=== PATIENT | female | born 1950 | race Caucasian/White ===

== ENCOUNTER 2017-08-21 11:05 | Inpatient (IN) | payer MEDICARE, OTHER ==
[~2017-08-21 11:05] MED LIST: Bisacodyl 5 MG Tab PO PRN; Cyclobenzaprine 10 MG Tab PO PRN; Ketorolac 15 MG/ML SDV IVPUSH PRN; Lidocaine 1%/Sod Bicarbonate in NS 8.4% 1 ML Syringe IV PRN; Magnesium Hydroxide 400 MG/5 ML Susp 30 ML Cup PO PRN; Morphine 2 MG/ML Syringe IVPUSH PRN; Naloxone 0.4 MG/ML SDV IVPUSH PRN; Ondansetron 4 MG/2 ML SDV IVPUSH PRN; Sennosides 8.6 MG Tab PO PRN; Sodium Chloride 0.9% 10 ML Syringe FLUSH PRN; diphenhydrAMINE 50 MG/ML SDV IVPUSH PRN
[2017-08-21] MEDS: Lactated Ringers 1,000 ML IV SCH ×2 (12:55→15:36)
[2017-08-21] MEDS ORDERED: Propofol 200 MG/20 ML SDV ONE ×2 (13:25→14:52)
[2017-08-21] MEDS ORDERED: ceFAZolin 1 GM Vial ONE ×2 (13:25→15:11)
[2017-08-21] MEDS ORDERED: Midazolam 1 MG/ML 2 ML SDV ONE ×2 (13:26→17:46)
[2017-08-21] MEDS ORDERED: fentaNYL 100 MCG/2 ML SDV ONE (13:26)
--- NOTE | 2017-08-21 13:57 | PCM.PREANE ---
Preanesthetic Assessment - Anesthesia/Transfusion/Family Hx Anesthesia History: Prior Anesthesia Without Reaction Family History of Anesthesia Reaction: No Transfusion History: No Prior Transfusion(s) Intubation History: Unknown - Review of Systems General: No Symptoms Pulmonary: No Symptoms Cardiovascular: No Symptoms, Other (Hypertension) Gastrointestinal: No Symptoms Neurological: No Symptoms Other: Reports: None - Physical Assessment NPO Status Date: 08/20/17 NPO Status Time: 21:00 O2 Sat by Pulse Oximetry: 96 Respiratory Rate: 18 Vital Signs: Last Vital Signs Temp 36.8 C 08/21/17 12:31 Pulse 75 08/21/17 12:31 Resp 18 08/21/17 12:31 BP 162/91 H 08/21/17 12:31 Pulse Ox 96 08/21/17 12:31 Height: 1.73 m Weight: 113.852 kg ASA Class: 2 Mental Status: Alert & Oriented x3 Airway Class: Mallampati = 2 Dentition: Reports: Normal Dentition Thyro-Mental Finger Breadths: 2 Mouth Opening Finger Breadths: 2 ROM/Head Extension: Full Lungs: Clear to Auscultation, Normal Respiratory Effort Cardiovascular: Regular Rate, Regular Rhythm - Lab Values: Laboratory Last Values APTT 25 SECONDS (22-36) 08/21/17 12:55 MRSA (PCR) Negative 08/09/17 10:21 - Imaging/EKG Impressions: Reviewed - Allergies Allergies/Adverse Reactions: Allergies Allergy/AdvReac Type Severity Reaction Status Date / Time No Known Allergies Allergy Verified 04/29/16 21:21 - Acknowledgements Anesthesia Type Planned: Spinal Pt an Appropriate Candidate for the Planned Anesthesia: Yes Alternatives and Risks of Anesthesia Discussed w Pt/Guardian: Yes Pt/Guardian Understands and Agrees with Anesthesia Plan: Yes PreAnesthesia Questionnaire HEENT History: Reports: Macular Degeneration Cardiovascular History: Reports: High Cholesterol, Hypertension Other Genitourinary History: enuresis [employer]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: Oncologic (Cancer) History: Reports: Breast - Past Surgical History HEENT Surgical History: Reports: Laser Surgery - SUBSTANCE USE Smoking Status *Q: Never Smoker Recreational Drug Use History: No - HOME MEDS Home Medications: Home Meds Acetaminophen/HYDROcodone [[place] 325-5 MG] 1 - 2 tab PO Q4H PRN #20 tablet 04/29 [Rx] Doxycycline [Vibramycin] 100 mg PO BID #28 tablet 04/29/16 [Rx] Hydrocodone/Acetaminophen [Hydrocodon-Acetaminophen 5-325] 1 each PO Q4H PRN 09/02 [History] Ramipril 10 mg PO DAILY 04/29/16 [History] - CURRENT (IN HOUSE) MEDS Current Meds: Current Medications Aspirin (Ecotrin) 325 mg PO BID [facility] Bisacodyl (Dulcolax) 5 mg PO DAILY PRN PRN Reason: Constipation Cyclobenzaprine HCl (Flexeril) 10 mg PO TID PRN PRN Reason: Spasms Diphenhydramine HCl (Benadryl) 25 mg IVPUSH Q4H PRN PRN Reason: Nausea Docusate Sodium (Colace) 100 mg PO BID [facility] Famotidine (Pepcid) 20 mg PO Q12H [facility] Lactated Ringer's (Ringers, Lactated) 1,000 mls @ 125 mls/hr IV ASDIRECTED [facility] Stop: 08/21/17 18:00 Last Admin: 08/21/17 12:55 Dose: 125 mls/hr Cefazolin Sodium/Dextrose 2 gm (/ Premix) 50 mls @ 100 mls/hr IV Q8H [facility] Stop: 08/22/17 13:59 Ketorolac Tromethamine (Toradol) 15 mg IVPUSH Q6H PRN PRN Reason: Pain Lidocaine/Sodium Bicarbonate (Buffered Lidocaine 1% In Ns 8.4%) 0.25 ml IV ONETIME PRN PRN Reason: Prior to IV Start Stop: 08/21/17 18:00 Last Admin: 08/21/17 12:55 Dose: 0.25 ml Magnesium Hydroxide (Milk Of Magnesia) 30 ml PO BID PRN PRN Reason: Constipation Morphine Sulfate (Morphine) 2 mg IVPUSH Q2H PRN PRN Reason: Breakthrough Pain Naloxone HCl (Narcan) 0.1 mg IVPUSH Q5M PRN PRN Reason: Oversedation Ondansetron HCl (Zofran) 4 mg IVPUSH Q6H PRN PRN Reason: Nausea/Vomiting Oxycodone/Acetaminophen (Percocet 325-5 Mg) 1 - 2 tab PO Q4H PRN PRN Reason: Pain Rivaroxaban (Xarelto) 10 mg PO DAILY [facility] Senna (Senna) 8.6 mg PO BID PRN PRN Reason: Constipation Sodium Chloride (Saline Flush) 10 ml FLUSH ASDIRECTED PRN PRN Reason: Keep Vein Open Discontinued Medications Cefazolin Sodium (Ancef) Confirm Administered Dose 2 gm .ROUTE .STK-MED ONE Stop: 08/21/17 13:26 Morphine Sulfate 8 mg/Epinephrine HCl 0.3 mg/Cefuroxime Sodium 750 mg/Ketorolac Tromethamine 30 mg/Sodium Chloride 27.9 ml 0 mg .XX ONETIME ONE Stop: 08/21/17 07:06 Fentanyl (Sublimaze) Confirm Administered Dose 100 mcg .ROUTE .STK-MED ONE Stop: 08/21/17 13:27 Midazolam HCl (Versed 1 Mg/Ml) Confirm Administered Dose 2 mg .ROUTE .STK-MED ONE Stop: 08/21/17 13:27 Propofol (Diprivan 20 Ml) Confirm Administered Dose 200 mg .ROUTE .STK-MED ONE Stop: 08/21/17 13:26
[2017-08-21] MEDS ORDERED: Lidocaine 1% 0 ML ONE (14:51)
[2017-08-21] MEDS ORDERED: Ondansetron 4 MG/2 ML SDV ONE (14:52)
[2017-08-21] MEDS ORDERED: Phenylephrine 1% 10 MG/ML SDV ONE (14:52)
[2017-08-21] MEDS ORDERED: Morphine PF 10 MG/10 ML SDV ONE (15:09)
[2017-08-21] MEDS ORDERED: Lactated Ringers 1,000 ML ONE ×2 (16:20)
[2017-08-21] MEDS ORDERED: HYDROmorphone 0.5 MG/0.5 ML Syringe IVPUSH PRN (16:28)
[2017-08-21] MEDS ORDERED: fentaNYL 100 MCG/2 ML SDV IVPUSH PRN (16:28)
[2017-08-21] MEDS ORDERED: ePHEDrine 50 MG/ML SDV IVPUSH PRN (16:28)
[2017-08-21] MEDS ORDERED: Ondansetron 4 MG/2 ML SDV IVPUSH PRN (16:28)
[2017-08-21] MEDS ORDERED: diphenhydrAMINE 50 MG/ML SDV IVPUSH PRN (16:28)
[2017-08-21] MEDS ORDERED: Phenylephrine 1 MG in Sodium Chloride 0.9% 10 ML IV SCH (16:30)
[2017-08-21] MEDS: ceFAZolin 1 GM Vial ONE ×2 (16:56→17:18)
[2017-08-21] MEDS: Iodine/Sodium Iodide 2% Tincture 30 ML Bottle ONE ×2 (16:56→17:14)
[2017-08-21] MEDS: Morphine 8 MG, EPINEPHrine 0.3 MG, Cefuroxime 750 MG, Ketorolac 30 MG, Sodium Chloride ... ONE ×10 (16:57→17:25)
[2017-08-21] MEDS: Bupivacaine 0.25% 30 ML SDV ONE ×2 (16:57→17:26)
[2017-08-21] MEDS: Vancomycin 1 GM SDV ONE ×2 (16:58→17:27)
--- NOTE | 2017-08-21 18:12 | PCM.POSTAN ---
POST ANESTHESIA ASSESSMENT - MENTAL STATUS Mental Status: Alert - VITAL SIGNS Pulse Rate: 93 SaO2: 94 Resp Rate: 15 Blood Pressure: 118/69 Temperature: 36.9 C - RESPIRATORY Respiratory Status: Respiratory Rate WNL, Airway Patent, O2 Saturation Stable - CARDIOVASCULAR CV Status: Pulse Rate WNL, Blood Pressure Stable - GASTROINTESTINAL GI Status: No Symptoms - POST OP HYDRATION Hydration Status: Adequate & Stable
--- NOTE | 2017-08-21 19:08 | CR ---
Right knee: AP and lateral views of the right knee were obtained. Comparison: No prior knee study. Knee prosthesis is seen. Soft tissue air is noted. Underlying bony structures are intact. Prosthesis appears aligned. Impression: 1. Satisfactory radiographic appearance of recently placed right knee prosthesis. Diagnostic code #2
[2017-08-21] MEDS: Aspirin 325 MG Tab.EC PO SCH ×2 (19:39→21:18)
[2017-08-21] MEDS: Docusate Sodium 100 MG Cap PO SCH (21:18)
[2017-08-21] MEDS: Famotidine 20 MG Tab PO SCH (21:18)
[2017-08-21] MEDS: ceFAZolin 2 GM in Premix Bag 1 BAG IV SCH (21:20)
--- NOTE | 2017-08-21 21:30 | PCM.CONS ---
H&P History of Present Illness - General Date of Service: 08/21/17 Admit Problem/Dx: Admission Diagnosis/Problem Admission Diagnosis/Problem Osteoarthritis of knee Source of Information: Patient, Old Records, Provider, RN, RN Notes Reviewed, Other (Surgical notes ) History Limitations: Reports: No Limitations - History of Present Illness Initial Comments - Free Text/Narative: Awilda Fontenot is a 67 yo female patient of Dr. Regan who is post-operative day 0 of right TKA. Hospital medicine was consulted for post-operative medical care. At this time she is resting comfortably in bed. Pain is controlled. She denies any chest pain, shortness of breath, palpitations, nausea, or vomiting. She carries a history of: Macular degeneration, HLD, HTN, enuresis, and breast cancer. She is a full code. - Related Data Allergies/Adverse Reactions: Allergies Allergy/AdvReac Type Severity Reaction Status Date / Time No Known Allergies Allergy Verified 08/21/17 13:59 Home Medications: Home Meds Hydrocodone/Acetaminophen [Hydrocodon-Acetaminophen 5-325] 1 each PO Q4H PRN 09/02 [History] Ramipril 10 mg PO DAILY 04/29/16 [History] Anastrozole [Arimidex] 1 mg PO DAILY 08/21/17 [History] B2/Vit A,C & E/Lut/Zeaxanth/Mn [Icaps] 1 tab PO DAILY 08/21/17 [History] Calcium Carbonate [Calcium] 500 mg PO DAILY 08/21/17 [History] Cholecalciferol (Vitamin D3) [Vitamin D] 5,000 unit PO DAILY 08/21/17 [History] Hydrochlorothiazide 25 mg PO DAILY 08/21/17 [History] Past Medical History HEENT History: Reports: Macular Degeneration Cardiovascular History: Reports: High Cholesterol, Hypertension Genitourinary History: Reports: Other (See Below) Other Genitourinary History: enuresis [employer]HER OPERATOR History: Reports: Musculoskeletal History: Reports: Arthritis Endocrine/Metabolic History: Reports: Obesity/BMI 30+ Oncologic (Cancer) History: Reports: Breast Other Oncologic History: Patient states bilateral breast cancer. States she had a mastectomy bilaterally on 2015. - Past Surgical History HEENT Surgical History: Reports: Laser Surgery Social & Family History - Tobacco Use Smoking Status *Q: Never Smoker - Recreational Drug Use Recreational Drug Use: No H&P Review of Systems - Review of Systems: Review Of Systems: See Below General: Reports: No Symptoms HEENT: Reports: No Symptoms Pulmonary: Reports: No Symptoms Cardiovascular: Reports: No Symptoms Gastrointestinal: Reports: No Symptoms Genitourinary: Reports: No Symptoms Musculoskeletal: Reports: Joint Pain (right knee ). Denies: Neck Pain, Shoulder Pain, Arm Pain, Back Pain, Hand Pain, Leg Pain, Foot Pain, Joint Swelling Skin: Reports: No Symptoms Psychiatric: Reports: No Symptoms Neurological: Reports: No Symptoms Hematologic/Lymphatic: Reports: No Symptoms Immunologic: Reports: No Symptoms Exam - Exam Exam: See Below - Vital Signs Vital Signs: Last Vital Signs Temp 97.3 F 08/21/17 19:00 Pulse 71 08/21/17 19:14 Resp 14 08/21/17 19:00 BP 120/71 08/21/17 19:00 Pulse Ox 98 08/21/17 20:42 Weight: 251 lb - Exam Quality Assessment: Supplemental Oxygen, Urinary Catheter, DVT Prophylaxis General: Alert, Oriented, Cooperative. No: Mild Distress HEENT: Conjunctiva Clear, EACs Clear, EOMI, Hearing Intact, Mucosa Moist & [place] , Nares Patent, Normal Nasal Septum, Posterior Pharynx Clear, PERRLA Neck: Supple, Trachea Midline. No: JVD, Thyromegaly Lungs: Clear to Auscultation, Normal Respiratory Effort Cardiovascular: Regular Rate, Regular Rhythm GI/Abdominal Exam: Normal Bowel Sounds, Soft, Non-Tender, No Organomegaly, No Distention, No Abnormal Bruit, No Mass, Pelvis Stable (Female) Exam: Deferred Rectal (Female) Exam: Deferred Back Exam: Normal Inspection, Full Range of Motion Extremities: No Pedal Edema, Normal Capillary Refill, Other (SONNY bandage in place on right leg. Bandage is dry and intact. Cooling pack in place. ) Peripheral Pulses: 2+: Radial (L), Radial (R), Posterior Tibial (L), Posterior Tibial (R), Dorsalis Pedis (L), Dorsalis Pedis (R) Skin: Warm, Dry, Intact Neurological: Cranial Nerves Intact (grossly) Neuro Extensive - Mental Status: Alert, Oriented x3, Normal Mood/Affect, Normal Cognition Neuro Extensive - Motor, Sensory, Reflexes: CN II-XII Intact (grossly) Psychiatric: Alert, Normal Affect, Normal Mood - Patient Data Lab Results Last 24 hrs: Laboratory Results - last 24 hr 08/21/17 Range/Units 12:55 APTT 25 (22-36) SECONDS Consult PN Assessment/Plan POD#: 0 Procedures: Procedures COMPLETE CBC W/AUTO DIFF WBC (04/29/16) CULTR BACTERIA EXCEPT BLOOD (04/29/16) EMERGENCY DEPT VISIT (04/29/16) PROTHROMBIN TIME (08/14/17) ROUTINE VENIPUNCTURE (08/14/17) SMEAR GRAM STAIN (04/29/16) (1) S/P total knee arthroplasty SNOMED Code(s): 5101886013470, 4751478590644 Code(s): Z96.659 - PRESENCE OF UNSPECIFIED ARTIFICIAL KNEE JOINT Priority: High Current Visit: Yes Qualifiers: Laterality: right Qualified Code(s): Z96.651 - Presence of right artificial knee joint (2) Osteoarthritis SNOMED Code(s): 330710059 Code(s): M19.90 - UNSPECIFIED OSTEOARTHRITIS, UNSPECIFIED SITE Priority: High Current Visit: Yes Qualifiers: Osteoarthritis location: knee Osteoarthritis type: primary Laterality: right Qualified Code(s): M17.11 - Unilateral primary osteoarthritis, right knee (3) Macular degeneration SNOMED Code(s): 297121601 Code(s): H35.30 - UNSPECIFIED MACULAR DEGENERATION Priority: Low Current Visit: No (4) HLD (hyperlipidemia) SNOMED Code(s): 72951866 Code(s): E78.5 - HYPERLIPIDEMIA, UNSPECIFIED Priority: Low Current Visit : No Qualifiers: Hyperlipidemia type: unspecified Qualified Code(s): E78.5 - Hyperlipidemia , unspecified (5) HTN (hypertension) SNOMED Code(s): 55341915 Code(s): I10 - ESSENTIAL (PRIMARY) HYPERTENSION Priority: Low Current Visit: No Qualifiers: Hypertension type: unspecified Qualified Code(s): I10 - Essential (primary ) hypertension (6) Enuresis SNOMED Code(s): 164169524 Code(s): R32 - UNSPECIFIED URINARY INCONTINENCE Priority: Low Current Visit: No (7) H/O malignant neoplasm of breast SNOMED Code(s): 226715630 Code(s): Z85.3 - PERSONAL HISTORY OF MALIGNANT NEOPLASM OF BREAST Priority : Low Current Visit: No Problem List Initiated/Reviewed/Updated: Yes Plan: I/P: Acute: S/P right total knee arthroplasty - post-operative day 0 -DVT prophylaxis and pain management per primary care team -PT/OT -IS/RT -Monitor oxygen saturation -Titrate oxygen as needed -Vital signs stable Osteoarthritis of right knee -Pain management per primary care team Chronic: Macular degeneration HLD HTN - stable enuresis hx/o breast cancer Plan: SW/CM for discharge planning GI prophylaxis Home medications as indicated Other orders as listed above Routine AM labs She is a full code. Thank you for allowing us to participate in the care of this patient!! Requesting Provider: Dr. Regan Date Consult Requested: 08/21/17 Reason for Consult: Post-operative medical care Patient History Reviewed: Yes Admission H&P Reviewed: Yes
[2017-08-22] MEDS: ceFAZolin 2 GM in Premix Bag 1 BAG IV SCH ×2 (06:37→13:55)
[2017-08-22] MEDS ORDERED: Hydrochlorothiazide 25 MG Tab PO SCH (09:00)
[2017-08-22] MEDS ORDERED: Lisinopril 20 MG Tab PO SCH (09:00)
[2017-08-22] MEDS ORDERED: Rivaroxaban 10 MG Tab PO SCH (09:00)
[2017-08-22] MEDS ORDERED: Cholecalciferol (Vitamin D3) 1,000 Unit Tab PO SCH (09:00)
[2017-08-22] MEDS ORDERED: Anastrozole 1 MG Tab PO SCH (09:00)
[2017-08-22] MEDS ORDERED: Calcium Carbonate 600 MG Tab PO SCH (09:00)
[2017-08-22] MEDS: Morphine 8 MG, EPINEPHrine 0.3 MG, Cefuroxime 750 MG, Ketorolac 30 MG, Sodium Chloride ... ONE ×5 (09:31)
[2017-08-22] MEDS: Aspirin 325 MG Tab.EC PO SCH (10:52)
[2017-08-22] MEDS: Famotidine 20 MG Tab PO SCH (10:53)
[2017-08-22] MEDS: Docusate Sodium 100 MG Cap PO SCH (10:53)
[2017-08-22 10:55] VITALS: BP 102/59
--- NOTE | 2017-08-22 11:10 | PCM.CONSN ---
- General Info Date of Service: 08/22/17 Functional Status: Reports: Pain Controlled - Review of Systems General: Reports: No Symptoms HEENT: Reports: No Symptoms Pulmonary: Reports: No Symptoms Cardiovascular: Reports: No Symptoms Gastrointestinal: Reports: No Symptoms Genitourinary: Reports: No Symptoms Musculoskeletal: Reports: No Symptoms Skin: Reports: No Symptoms Neurological: Reports: No Symptoms Psychiatric: Reports: No Symptoms - Patient Data Vitals - Most Recent: Last Vital Signs Temp 98.1 F 08/22/17 04:03 Pulse 65 08/22/17 04:03 Resp 16 08/22/17 07:07 BP 102/59 L 08/22/17 10:53 Pulse Ox 99 08/22/17 07:07 Weight - Most Recent: 251 lb I&O - Last 24 Hours: Intake & Output 08/21/17 08/22/17 08/22/17 22:59 06:59 14:59 Intake Total 300 120 Output Total 425 225 Balance -125 -225 120 Lab Results Last 24 Hours: Laboratory Results - last 24 hr 08/21/17 08/22/17 08/22/17 Range/Units 12:55 06:55 06:55 WBC 8.54 (3.98-10.04) K/mm3 RBC 3.97 L (3.98-5.22) M/mm3 Hgb 11.7 (11.2-15.7) gm/L Hct 35.6 (34.1-44.9) % MCV 89.7 (79.4-94.8) fl MCH 29.5 (25.6-32.2) pg MCHC 32.9 (32.2-35.5) g/dl RDW Std Deviation 45.3 (36.4-46.3) fL Plt Count 205 (182-369) K/mm3 MPV 9.7 (9.4-12.3) fl APTT 25 (22-36) SECONDS Sodium 140 (136-145) mEq/L Potassium 4.0 (3.5-5.1) mEq/L Chloride 106 (98-107) mEq/L Carbon Dioxide 26 (21-32) mEq/L Anion Gap 12.0 (5-15) BUN 14 (7-18) mg/dL Creatinine 0.8 (0.55-1.02) mg/dL Est Cr Clr Drug Dosing 68.84 mL/min Estimated GFR (MDRD) > 60 (>60) mL/min BUN/Creatinine Ratio 17.5 (14-18) Glucose 115 (80-115) mg/dL Calcium 8.5 (8.5-10.1) mg/dL Total Bilirubin 0.6 (0.2-1.0) mg/dL AST 18 (15-37) U/L ALT 24 (14-59) U/L Alkaline Phosphatase 48 (46-116) U/L Total Protein 5.8 L (6.4-8.2) g/dl Albumin 3.1 L (3.4-5.0) g/dl Globulin 2.7 gm/dL Albumin/Globulin Ratio 1.2 (1-2) Med Orders - Current: Current Medications Anastrozole (Arimidex) 1 mg PO DAILY [facility] Last Admin: 08/22/17 10:54 Dose: 1 mg Aspirin (Ecotrin) 325 mg PO BID [facility] Last Admin: 08/22/17 10:52 Dose: 325 mg Bisacodyl (Dulcolax) 5 mg PO DAILY PRN PRN Reason: Constipation Calcium Carbonate/Glycine (Calcium Carbonate) 600 mg PO DAILY [facility] Last Admin: 08/22/17 10:53 Dose: 600 mg Cholecalciferol (Vitamin D3) 5,000 units PO DAILY [facility] Last Admin: 08/22/17 10:53 Dose: 5,000 units Cyclobenzaprine HCl (Flexeril) 10 mg PO TID PRN PRN Reason: Spasms Diphenhydramine HCl (Benadryl) 25 mg IVPUSH Q6H PRN PRN Reason: pruritis Docusate Sodium (Colace) 100 mg PO BID [facility] Last Admin: 08/22/17 10:53 Dose: 100 mg Famotidine (Pepcid) 20 mg PO Q12H [facility] Last Admin: 08/22/17 10:53 Dose: 20 mg Hydrochlorothiazide (Hydrochlorothiazide) 25 mg PO DAILY [facility] Last Admin: 08/22/17 10:53 Dose: 25 mg Cefazolin Sodium/Dextrose 2 gm (/ Premix) 50 mls @ 100 mls/hr IV Q8H [facility] Stop: 08/22/17 13:59 Last Admin: 08/22/17 06:37 Dose: 100 mls/hr Ketorolac Tromethamine (Toradol) 15 mg IVPUSH Q6H PRN PRN Reason: Pain Lisinopril (Prinivil) 20 mg PO DAILY [facility] Last Admin: 08/22/17 10:53 Dose: 20 mg Magnesium Hydroxide (Milk Of Magnesia) 30 ml PO BID PRN PRN Reason: Constipation Morphine Sulfate (Morphine) 2 mg IVPUSH Q2H PRN PRN Reason: Breakthrough Pain Naloxone HCl (Narcan) 0.1 mg IVPUSH Q5M PRN PRN Reason: Oversedation Ondansetron HCl (Zofran) 4 mg IVPUSH Q6H PRN PRN Reason: Nausea/Vomiting Ondansetron HCl (Zofran) 4 mg IVPUSH ONETIME PRN PRN Reason: Nausea/Vomiting Oxycodone/Acetaminophen (Percocet 325-5 Mg) 1 - 2 tab PO Q4H PRN PRN Reason: Pain Rivaroxaban (Xarelto) 10 mg PO DAILY [facility] Last Admin: 08/22/17 10:53 Dose: 10 mg Senna (Senna) 8.6 mg PO BID PRN PRN Reason: Constipation Sodium Chloride (Saline Flush) 10 ml FLUSH ASDIRECTED PRN PRN Reason: Keep Vein Open Discontinued Medications Bupivacaine HCl (Marcaine 0.25%) Confirm Administered Dose 30 ml .ROUTE .STK- MED ONE Stop: 08/21/17 14:26 Last Admin: 08/21/17 17:26 Dose: 30 ml Cefazolin Sodium (Ancef) Confirm Administered Dose 2 gm .ROUTE .STK-MED ONE Stop: 08/21/17 13:26 Cefazolin Sodium (Ancef) Confirm Administered Dose 2 gm .ROUTE .STK-MED ONE Stop: 08/21/17 14:26 Last Admin: 08/21/17 17:18 Dose: 2 gm Cefazolin Sodium (Ancef) Confirm Administered Dose 2 gm .ROUTE .STK-MED ONE Stop: 08/21/17 15:12 Morphine Sulfate 8 mg/Epinephrine HCl 0.3 mg/Cefuroxime Sodium 750 mg/Ketorolac Tromethamine 30 mg/Sodium Chloride 27.9 ml 0 mg .XX ONETIME ONE Stop: 08/21/17 07:06 Last Admin: 08/22/17 09:31 Dose: Not Given Diphenhydramine HCl (Benadryl) 25 mg IVPUSH Q4H PRN PRN Reason: Nausea Ephedrine Sulfate (Ephedrine Sulfate) 5 mg IVPUSH ASDIRECTED PRN PRN Reason: Hypotension Fentanyl (Sublimaze) Confirm Administered Dose 100 mcg .ROUTE .STK-MED ONE Stop: 08/21/17 13:27 Fentanyl (Sublimaze) 50 mcg IVPUSH Q5M PRN PRN Reason: Pain Glycopyrrolate () Confirm Administered Dose 1 mg .ROUTE .STK-MED ONE Stop: 08/21/17 17:28 Hydromorphone HCl (Dilaudid) 0.5 mg IVPUSH Q15M PRN PRN Reason: severe pain Lactated Ringer's (Ringers, Lactated) 1,000 mls @ 125 mls/hr IV ASDIRECTED [facility] Stop: 08/21/17 18:00 Last Admin: 08/21/17 15:36 Dose: 125 mls/hr Lidocaine HCl (Xylocaine-Mpf 1%) Confirm Administered Dose 0 mls @ as directed .ROUTE .STK-MED ONE Stop: 08/21/17 14:52 Lidocaine HCl (Xylocaine-Mpf 1%) Confirm Administered Dose 10 mls @ as directed .ROUTE .STK-MED ONE Stop: 08/21/17 14:53 Lactated Ringer's (Ringers, Lactated) Confirm Administered Dose 1,000 mls @ as directed .ROUTE .STK-MED ONE Stop: 08/21/17 16:21 Lactated Ringer's (Ringers, Lactated) Confirm Administered Dose 1,000 mls @ as directed .ROUTE .STK-MED ONE Stop: 08/21/17 16:21 Phenylephrine HCl 1 mg/ Sodium (Chloride) 10.1 mls @ 1 mls/sec IV TITRATE [facility] PRN Reason: Protocol Iodine (Iodine 2% Mild Tincture) Confirm Administered Dose 30 ml .ROUTE .STK- MED ONE Stop: 08/21/17 14:26 Last Admin: 08/21/17 17:14 Dose: 18 ml Lidocaine/Sodium Bicarbonate (Buffered Lidocaine 1% In Ns 8.4%) 0.25 ml IV ONETIME PRN PRN Reason: Prior to IV Start Stop: 08/21/17 18:00 Last Admin: 08/21/17 12:55 Dose: 0.25 ml Midazolam HCl (Versed 1 Mg/Ml) Confirm Administered Dose 2 mg .ROUTE .STK-MED ONE Stop: 08/21/17 13:27 Midazolam HCl (Versed 1 Mg/Ml) Confirm Administered Dose 2 mg .ROUTE .STK-MED ONE Stop: 08/21/17 17:47 Morphine Sulfate (Duramorph Pf) Confirm Administered Dose 10 mg .ROUTE .STK-MED ONE Stop: 08/21/17 15:10 Ondansetron HCl (Zofran) Confirm Administered Dose 4 mg .ROUTE .STK-MED ONE Stop: 08/21/17 14:53 Phenylephrine HCl (Robert-Synephrine) Confirm Administered Dose 10 mg .ROUTE .STK- MED ONE Stop: 08/21/17 14:53 Propofol (Diprivan 20 Ml) Confirm Administered Dose 200 mg .ROUTE .STK-MED ONE Stop: 08/21/17 13:26 Propofol (Diprivan 20 Ml) Confirm Administered Dose 400 mg .ROUTE .STK-MED ONE Stop: 08/21/17 14:53 Tranexamic Acid (Cyklokapron) Confirm Administered Dose 1,000 mg .ROUTE .STK- MED ONE Stop: 08/21/17 14:26 Last Admin: 08/21/17 17:32 Dose: 1,000 mg Vancomycin HCl (Vancomycin) Confirm Administered Dose 1 gm .ROUTE .STK-MED ONE Stop: 08/21/17 14:26 Last Admin: 08/21/17 17:27 Dose: 1 gm - Exam General: Alert, Oriented HEENT: Pupils Equal, Pupils Reactive, EOMI, Mucous Membr. Moist/[place] Neck: Supple Lungs: Clear to Auscultation, Normal Respiratory Effort Cardiovascular: Regular Rate, Regular Rhythm GI/Abdominal Exam: Normal Bowel Sounds, Soft, Non-Tender, No Organomegaly, No Distention, No Abnormal Bruit, No Mass, Pelvis Stable Extremities: Normal Inspection, Normal Range of Motion, Non-Tender, No Pedal Edema, Normal Capillary Refill Skin: Warm, Dry, Intact Wound/Incisions: Healing Well Neurological: No New Focal Deficit Psy/Mental Status: Alert, Normal Affect, Normal Mood Consult PN Assessment/Plan POD#: 1 Procedures: Procedures COMPLETE CBC W/AUTO DIFF WBC (04/29/16) CULTR BACTERIA EXCEPT BLOOD (04/29/16) EMERGENCY DEPT VISIT (04/29/16) PROTHROMBIN TIME (11/27/17) ROUTINE VENIPUNCTURE (08/14/17) SMEAR GRAM STAIN (04/29/16) Problem List Initiated/Reviewed/Updated: Yes Plan: S/P right total knee arthroplasty - post-operative day 1 -DVT prophylaxis and pain management per primary care team -PT/OT -IS/RT -Monitor oxygen saturation -Titrate oxygen as needed -Vital signs stable Osteoarthritis of right knee -Pain management per primary care team Chronic: Macular degeneration HLD HTN - stable enuresis hx/o breast cancer Plan: pt is stable okay to DC from our standpoint on her home med for BP will sign off She is a full code. Thank you for allowing us to participate in the care of this patient!!
[2017-08-22] MEDS: Acetaminophen/oxyCODONE 325-5 MG Tab PO PRN ×2 (12:39→16:21)
--- NOTE | 2017-08-23 11:03 | PCM.SURGPN ---
- General Info Date of Service: 08/22/17 POD#: 1 Functional Status: Reports: Pain Controlled, Tolerating Diet, Ambulating, Urinating, Incentive Spirometry, Other (Nursing states pt's pain has been controlled. The pt feels prepared for discharge to assisted living.) - Patient Data Vitals - Most Recent: Last Vital Signs Temp 98.3 F 08/22/17 11:09 Pulse 76 08/22/17 10:55 Resp 16 08/22/17 07:07 BP 102/59 L 08/22/17 10:55 Pulse Ox 90 L 08/22/17 10:55 Weight - Most Recent: 251 lb I&O - Last 24 Hours: Intake & Output 08/22/17 08/23/17 08/23/17 22:59 06:59 14:59 Intake Total 50 Output Total 425 Balance -375 Med Orders - Current: Current Medications Discontinued Medications Anastrozole (Arimidex) 1 mg PO DAILY [facility] Last Admin: 08/22/17 10:54 Dose: 1 mg Aspirin (Ecotrin) 325 mg PO BID [facility] Last Admin: 08/22/17 10:52 Dose: 325 mg Bisacodyl (Dulcolax) 5 mg PO DAILY PRN PRN Reason: Constipation Bupivacaine HCl (Marcaine 0.25%) Confirm Administered Dose 30 ml .ROUTE .STK- MED ONE Stop: 08/21/17 14:26 Last Admin: 08/21/17 17:26 Dose: 30 ml Calcium Carbonate/Glycine (Calcium Carbonate) 600 mg PO DAILY [facility] Last Admin: 08/22/17 10:53 Dose: 600 mg Cefazolin Sodium (Ancef) Confirm Administered Dose 2 gm .ROUTE .STK-MED ONE Stop: 08/21/17 13:26 Cefazolin Sodium (Ancef) Confirm Administered Dose 2 gm .ROUTE .STK-MED ONE Stop: 08/21/17 14:26 Last Admin: 08/21/17 17:18 Dose: 2 gm Cefazolin Sodium (Ancef) Confirm Administered Dose 2 gm .ROUTE .STK-MED ONE Stop: 08/21/17 15:12 Cholecalciferol (Vitamin D3) 5,000 units PO DAILY [facility] Last Admin: 08/22/17 10:53 Dose: 5,000 units Morphine Sulfate 8 mg/Epinephrine HCl 0.3 mg/Cefuroxime Sodium 750 mg/Ketorolac Tromethamine 30 mg/Sodium Chloride 27.9 ml 0 mg .XX ONETIME ONE Stop: 08/21/17 07:06 Last Admin: 08/22/17 09:31 Dose: Not Given Cyclobenzaprine HCl (Flexeril) 10 mg PO TID PRN PRN Reason: Spasms Last Admin: 08/22/17 13:55 Dose: 10 mg Diphenhydramine HCl (Benadryl) 25 mg IVPUSH Q4H PRN PRN Reason: Nausea Diphenhydramine HCl (Benadryl) 25 mg IVPUSH Q6H PRN PRN Reason: pruritis Docusate Sodium (Colace) 100 mg PO BID [facility] Last Admin: 08/22/17 10:53 Dose: 100 mg Ephedrine Sulfate (Ephedrine Sulfate) 5 mg IVPUSH ASDIRECTED PRN PRN Reason: Hypotension Famotidine (Pepcid) 20 mg PO Q12H [facility] Last Admin: 08/22/17 10:53 Dose: 20 mg Fentanyl (Sublimaze) Confirm Administered Dose 100 mcg .ROUTE .STK-MED ONE Stop: 08/21/17 13:27 Fentanyl (Sublimaze) 50 mcg IVPUSH Q5M PRN PRN Reason: Pain Glycopyrrolate () Confirm Administered Dose 1 mg .ROUTE .STK-MED ONE Stop: 08/21/17 17:28 Hydrochlorothiazide (Hydrochlorothiazide) 25 mg PO DAILY [facility] Last Admin: 08/22/17 10:53 Dose: 25 mg Hydromorphone HCl (Dilaudid) 0.5 mg IVPUSH Q15M PRN PRN Reason: severe pain Lactated Ringer's (Ringers, Lactated) 1,000 mls @ 125 mls/hr IV ASDIRECTED [facility] Stop: 08/21/17 18:00 Last Admin: 08/21/17 15:36 Dose: 125 mls/hr Cefazolin Sodium/Dextrose 2 gm (/ Premix) 50 mls @ 100 mls/hr IV Q8H [facility] Stop: 08/22/17 13:59 Last Admin: 08/22/17 13:55 Dose: 100 mls/hr Lidocaine HCl (Xylocaine-Mpf 1%) Confirm Administered Dose 0 mls @ as directed .ROUTE .STK-MED ONE Stop: 08/21/17 14:52 Lidocaine HCl (Xylocaine-Mpf 1%) Confirm Administered Dose 10 mls @ as directed .ROUTE .STK-MED ONE Stop: 08/21/17 14:53 Lactated Ringer's (Ringers, Lactated) Confirm Administered Dose 1,000 mls @ as directed .ROUTE .STK-MED ONE Stop: 08/21/17 16:21 Lactated Ringer's (Ringers, Lactated) Confirm Administered Dose 1,000 mls @ as directed .ROUTE .STK-MED ONE Stop: 08/21/17 16:21 Phenylephrine HCl 1 mg/ Sodium (Chloride) 10.1 mls @ 1 mls/sec IV TITRATE [facility] PRN Reason: Protocol Iodine (Iodine 2% Mild Tincture) Confirm Administered Dose 30 ml .ROUTE .STK- MED ONE Stop: 08/21/17 14:26 Last Admin: 08/21/17 17:14 Dose: 18 ml Ketorolac Tromethamine (Toradol) 15 mg IVPUSH Q6H PRN PRN Reason: Pain Lidocaine/Sodium Bicarbonate (Buffered Lidocaine 1% In Ns 8.4%) 0.25 ml IV ONETIME PRN PRN Reason: Prior to IV Start Stop: 08/21/17 18:00 Last Admin: 08/21/17 12:55 Dose: 0.25 ml Lisinopril (Prinivil) 20 mg PO DAILY [facility] Last Admin: 08/22/17 10:53 Dose: 20 mg Magnesium Hydroxide (Milk Of Magnesia) 30 ml PO BID PRN PRN Reason: Constipation Midazolam HCl (Versed 1 Mg/Ml) Confirm Administered Dose 2 mg .ROUTE .STK-MED ONE Stop: 08/21/17 13:27 Midazolam HCl (Versed 1 Mg/Ml) Confirm Administered Dose 2 mg .ROUTE .STK-MED ONE Stop: 08/21/17 17:47 Morphine Sulfate (Morphine) 2 mg IVPUSH Q2H PRN PRN Reason: Breakthrough Pain Morphine Sulfate (Duramorph Pf) Confirm Administered Dose 10 mg .ROUTE .STK-MED ONE Stop: 08/21/17 15:10 Naloxone HCl (Narcan) 0.1 mg IVPUSH Q5M PRN PRN Reason: Oversedation Ondansetron HCl (Zofran) 4 mg IVPUSH Q6H PRN PRN Reason: Nausea/Vomiting Ondansetron HCl (Zofran) Confirm Administered Dose 4 mg .ROUTE .STK-MED ONE Stop: 08/21/17 14:53 Ondansetron HCl (Zofran) 4 mg IVPUSH ONETIME PRN PRN Reason: Nausea/Vomiting Oxycodone/Acetaminophen (Percocet 325-5 Mg) 1 - 2 tab PO Q4H PRN PRN Reason: Pain Last Admin: 08/22/17 16:21 Dose: 2 tab Phenylephrine HCl (Robert-Synephrine) Confirm Administered Dose 10 mg .ROUTE .STK- MED ONE Stop: 08/21/17 14:53 Propofol (Diprivan 20 Ml) Confirm Administered Dose 200 mg .ROUTE .STK-MED ONE Stop: 08/21/17 13:26 Propofol (Diprivan 20 Ml) Confirm Administered Dose 400 mg .ROUTE .STK-MED ONE Stop: 08/21/17 14:53 Rivaroxaban (Xarelto) 10 mg PO DAILY [facility] Last Admin: 08/22/17 10:53 Dose: 10 mg Senna (Senna) 8.6 mg PO BID PRN PRN Reason: Constipation Sodium Chloride (Saline Flush) 10 ml FLUSH ASDIRECTED PRN PRN Reason: Keep Vein Open Tranexamic Acid (Cyklokapron) Confirm Administered Dose 1,000 mg .ROUTE .STK- MED ONE Stop: 08/21/17 14:26 Last Admin: 08/21/17 17:32 Dose: 1,000 mg Vancomycin HCl (Vancomycin) Confirm Administered Dose 1 gm .ROUTE .STK-MED ONE Stop: 08/21/17 14:26 Last Admin: 08/21/17 17:27 Dose: 1 gm - Exam Wound/Incisions: Dressing Dry and Intact General: Alert, Cooperative, No Acute Distress Lungs: Normal Respiratory Effort Extremities: Other (NVS intact for BLE. Joe's negative. ) - Problem List Review Problem List Initiated/Reviewed/Updated: Yes - My Orders Last 24 Hours: Active Orders 24 hr Category Date Time Status Ready for Discharge [RC] PER UNIT ROUTINE Care 08/22/17 11:58 Active - Assessment Assessment (Free Text/Narrative):: POD#1 - s/p right TKA - Plan Plan (Free Text/Narrative):: 1. Hgb 11.7. 2. Discharge to assisted living at [facility]. 3. Outpatient P.T. 4. Justino, Guerita, frequent mobility. The pt's case was discussed with Dr. Regan.
--- NOTE | 2017-08-23 11:05 | PCM.DCSUM1 ---
Discharge Summary - Hospital Course Brief History: Awilda is a 67 yo female who underwent right TKA with Dr. Regan on 08-21-17. The procedure was completed under spinal anesthesia with sedation. The pt tolerated the procedure well and was admitted to the [facility] under Medical-Surgical status. Medical management was provided by the Hospitalist service. The pt's Hospital course was uneventful. The pt's Hgb on POD#1 was 11.7. On POD#1, Xarelto 10 mg PO daily was initiated for VTE prophylaxis. SCDs and TEDs were also ordered. A Mepilex dressing was placed at the incision site at the time of surgery and remained clean and dry. The pt participated in P.T. and O.T. and progressed well. The pt was allowed to WBAT and used a FWW for mobility. On POD#1, the pt was deemed appropriate to discharge to the assisted living center in [place], [place]. - Discharge Data Discharge Date: 08/22/17 Discharge Disposition: Home, Self-Care 01 Condition: Good - Patient Summary/Data Consults: Consultations 08/21/17 07:06 Consult to Physician [CONS] Routine OT Evaluation and Treatment [CONS] Routine 08/21/17 07:10 PT Evaluation and Treatment [CONS] Routine - Patient Instructions Diet: Usual Diet as Tolerated Activity: Apply Ice, As Tolerated, Elevate Extremity, Full Weight Bearing Driving: Do Not Drive Showering/Bathing: May Shower Wound/Incision Care: Keep Operative Site/Wound Site Clean and Dry, Do NOT Change Dressing Notify Provider of: Fever, Increased Pain, Swelling and Redness, Drainage, Nausea and/or Vomiting Other/Special Instructions: Please get up and moving around every hour while awake. This helps to prevent blood clots. Please take the blood thinner medication daily as directed. Please wear the BEATRIZ hose during the day and you may remove them at night. Please schedule for P.T. Complete the P.T. exercises and stretches that were instructed in the Hospital. Please use the pain medication and muscle relaxant as needed. The medication may cause drowsiness and/or constipation. You could use a stool softener like docusate sodium or Colace 100mg twice daily and/or a laxative like Miralax daily for constipation. Contact your primary care provider for further instructions if you are constipated. Please schedule an appointment with your primary care provider for 'routine post-op care'. Use the incentive spirometer often. Please place ice to the knee often. Please elevate the limb to decrease swelling. Keep the Mepilex dressing in place until follow-up. Please call [phone] with questions or concerns. - Discharge Plan Prescriptions/Med Rec: Acetaminophen/oxyCODONE [Percocet 325-5 MG] 1 - 2 tab PO Q4H PRN #60 tablet PRN Reason: Pain Cyclobenzaprine [Flexeril] 10 mg PO TID PRN #40 tablet PRN Reason: Spasms Rivaroxaban [Xarelto] 10 mg PO DAILY #30 tablet Home Medications: Home Meds Ramipril 10 mg PO DAILY 04/29/16 [History] Anastrozole [Arimidex] 1 mg PO DAILY 08/21/17 [History] Calcium Carbonate [Calcium] 500 mg PO DAILY 08/21/17 [History] Cholecalciferol (Vitamin D3) [Vitamin D] 5,000 unit PO DAILY 08/21/17 [History] Hydrochlorothiazide 25 mg PO DAILY 08/21/17 [History] Acetaminophen/oxyCODONE [Percocet 325-5 MG] 1 - 2 tab PO Q4H PRN #60 tablet 02/01 [Rx] Bisacodyl [Dulcolax] 5 mg PO DAILY PRN tablet 08/22/17 [Rx] Cyclobenzaprine [Flexeril] 10 mg PO TID PRN #40 tablet 08/22/17 [Rx] Docusate Sodium [Colace] 100 mg PO BID cap 08/22/17 [Rx] Famotidine [Pepcid] 20 mg PO Q12H tablet 08/22/17 [Rx] Magnesium Hydroxide [Milk of Magnesia] 30 ml PO BID PRN cup 08/22/17 [Rx] Rivaroxaban [Xarelto] 10 mg PO DAILY #30 tablet 08/22/17 [Rx] Sennosides [Senna] 8.6 mg PO BID PRN tablet 08/22/17 [Rx] Patient Handouts: Total Knee Replacement, Care After, [id number], Total Knee Replacement, [id number], Knee Rehabilitation Guidelines Following Surgery Referrals: Gi Grant MD [Ordering Only Provider] - () Marina Rios PA-C [Physician Commercial Counsel] - (Appointment with Marina Rios PA-C 08/29/17 @ 10:15am 09/05/17 @ 10:45am) - Patient Data Vitals - Most Recent: Last Vital Signs Temp 98.3 F 08/22/17 11:09 Pulse 76 08/22/17 10:55 Resp 16 08/22/17 07:07 BP 102/59 L 08/22/17 10:55 Pulse Ox 90 L 08/22/17 10:55 Weight - Most Recent: 251 lb I&O - Last 24 hours: Intake & Output 08/22/17 08/23/17 08/23/17 22:59 06:59 14:59 Intake Total 50 Output Total 425 Balance -375 Med Orders - Current: Current Medications Discontinued Medications Anastrozole (Arimidex) 1 mg PO DAILY [facility] Last Admin: 08/22/17 10:54 Dose: 1 mg Aspirin (Ecotrin) 325 mg PO BID [facility] Last Admin: 08/22/17 10:52 Dose: 325 mg Bisacodyl (Dulcolax) 5 mg PO DAILY PRN PRN Reason: Constipation Bupivacaine HCl (Marcaine 0.25%) Confirm Administered Dose 30 ml .ROUTE .STK- MED ONE Stop: 08/21/17 14:26 Last Admin: 08/21/17 17:26 Dose: 30 ml Calcium Carbonate/Glycine (Calcium Carbonate) 600 mg PO DAILY [facility] Last Admin: 08/22/17 10:53 Dose: 600 mg Cefazolin Sodium (Ancef) Confirm Administered Dose 2 gm .ROUTE .STK-MED ONE Stop: 08/21/17 13:26 Cefazolin Sodium (Ancef) Confirm Administered Dose 2 gm .ROUTE .STK-MED ONE Stop: 08/21/17 14:26 Last Admin: 08/21/17 17:18 Dose: 2 gm Cefazolin Sodium (Ancef) Confirm Administered Dose 2 gm .ROUTE .STK-MED ONE Stop: 08/21/17 15:12 Cholecalciferol (Vitamin D3) 5,000 units PO DAILY [facility] Last Admin: 08/22/17 10:53 Dose: 5,000 units Morphine Sulfate 8 mg/Epinephrine HCl 0.3 mg/Cefuroxime Sodium 750 mg/Ketorolac Tromethamine 30 mg/Sodium Chloride 27.9 ml 0 mg .XX ONETIME ONE Stop: 08/21/17 07:06 Last Admin: 08/22/17 09:31 Dose: Not Given Cyclobenzaprine HCl (Flexeril) 10 mg PO TID PRN PRN Reason: Spasms Last Admin: 08/22/17 13:55 Dose: 10 mg Diphenhydramine HCl (Benadryl) 25 mg IVPUSH Q4H PRN PRN Reason: Nausea Diphenhydramine HCl (Benadryl) 25 mg IVPUSH Q6H PRN PRN Reason: pruritis Docusate Sodium (Colace) 100 mg PO BID [facility] Last Admin: 08/22/17 10:53 Dose: 100 mg Ephedrine Sulfate (Ephedrine Sulfate) 5 mg IVPUSH ASDIRECTED PRN PRN Reason: Hypotension Famotidine (Pepcid) 20 mg PO Q12H [facility] Last Admin: 08/22/17 10:53 Dose: 20 mg Fentanyl (Sublimaze) Confirm Administered Dose 100 mcg .ROUTE .STK-MED ONE Stop: 08/21/17 13:27 Fentanyl (Sublimaze) 50 mcg IVPUSH Q5M PRN PRN Reason: Pain Glycopyrrolate () Confirm Administered Dose 1 mg .ROUTE .STK-MED ONE Stop: 08/21/17 17:28 Hydrochlorothiazide (Hydrochlorothiazide) 25 mg PO DAILY [facility] Last Admin: 08/22/17 10:53 Dose: 25 mg Hydromorphone HCl (Dilaudid) 0.5 mg IVPUSH Q15M PRN PRN Reason: severe pain Lactated Ringer's (Ringers, Lactated) 1,000 mls @ 125 mls/hr IV ASDIRECTED [facility] Stop: 08/21/17 18:00 Last Admin: 08/21/17 15:36 Dose: 125 mls/hr Cefazolin Sodium/Dextrose 2 gm (/ Premix) 50 mls @ 100 mls/hr IV Q8H [facility] Stop: 08/22/17 13:59 Last Admin: 08/22/17 13:55 Dose: 100 mls/hr Lidocaine HCl (Xylocaine-Mpf 1%) Confirm Administered Dose 0 mls @ as directed .ROUTE .STK-MED ONE Stop: 08/21/17 14:52 Lidocaine HCl (Xylocaine-Mpf 1%) Confirm Administered Dose 10 mls @ as directed .ROUTE .[facility]-MED ONE Stop: 08/21/17 14:53 Lactated Ringer's (Ringers, Lactated) Confirm Administered Dose 1,000 mls @ as directed .ROUTE .[facility] ONE Stop: 08/21/17 16:21 Lactated Ringer's (Ringers, Lactated) Confirm Administered Dose 1,000 mls @ as directed .ROUTE .[facility]-MED ONE Stop: 08/21/17 16:21 Phenylephrine HCl 1 mg/ Sodium (Chloride) 10.1 mls @ 1 mls/sec IV TITRATE [facility] PRN Reason: Protocol Iodine (Iodine 2% Mild Tincture) Confirm Administered Dose 30 ml .ROUTE .[facility] ONE Stop: 08/21/17 14:26 Last Admin: 08/21/17 17:14 Dose: 18 ml Ketorolac Tromethamine (Toradol) 15 mg IVPUSH Q6H PRN PRN Reason: Pain Lidocaine/Sodium Bicarbonate (Buffered Lidocaine 1% In Ns 8.4%) 0.25 ml IV ONETIME PRN PRN Reason: Prior to IV Start Stop: 08/21/17 18:00 Last Admin: 08/21/17 12:55 Dose: 0.25 ml Lisinopril (Prinivil) 20 mg PO DAILY [facility] Last Admin: 08/22/17 10:53 Dose: 20 mg Magnesium Hydroxide (Milk Of Magnesia) 30 ml PO BID PRN PRN Reason: Constipation Midazolam HCl (Versed 1 Mg/Ml) Confirm Administered Dose 2 mg .ROUTE .ST-MED ONE Stop: 08/21/17 13:27 Midazolam HCl (Versed 1 Mg/Ml) Confirm Administered Dose 2 mg .ROUTE .ST-MED ONE Stop: 08/21/17 17:47 Morphine Sulfate (Morphine) 2 mg IVPUSH Q2H PRN PRN Reason: Breakthrough Pain Morphine Sulfate (Duramorph Pf) Confirm Administered Dose 10 mg .ROUTE .STK-MED ONE Stop: 08/21/17 15:10 Naloxone HCl (Narcan) 0.1 mg IVPUSH Q5M PRN PRN Reason: Oversedation Ondansetron HCl (Zofran) 4 mg IVPUSH Q6H PRN PRN Reason: Nausea/Vomiting Ondansetron HCl (Zofran) Confirm Administered Dose 4 mg .ROUTE .STK-MED ONE Stop: 08/21/17 14:53 Ondansetron HCl (Zofran) 4 mg IVPUSH ONETIME PRN PRN Reason: Nausea/Vomiting Oxycodone/Acetaminophen (Percocet 325-5 Mg) 1 - 2 tab PO Q4H PRN PRN Reason: Pain Last Admin: 08/22/17 16:21 Dose: 2 tab Phenylephrine HCl (Robert-Synephrine) Confirm Administered Dose 10 mg .ROUTE .STK- MED ONE Stop: 08/21/17 14:53 Propofol (Diprivan 20 Ml) Confirm Administered Dose 200 mg .ROUTE .STK-MED ONE Stop: 08/21/17 13:26 Propofol (Diprivan 20 Ml) Confirm Administered Dose 400 mg .ROUTE .STK-MED ONE Stop: 08/21/17 14:53 Rivaroxaban (Xarelto) 10 mg PO DAILY [facility] Last Admin: 08/22/17 10:53 Dose: 10 mg Senna (Senna) 8.6 mg PO BID PRN PRN Reason: Constipation Sodium Chloride (Saline Flush) 10 ml FLUSH ASDIRECTED PRN PRN Reason: Keep Vein Open Tranexamic Acid (Cyklokapron) Confirm Administered Dose 1,000 mg .ROUTE .STK- MED ONE Stop: 08/21/17 14:26 Last Admin: 08/21/17 17:32 Dose: 1,000 mg Vancomycin HCl (Vancomycin) Confirm Administered Dose 1 gm .ROUTE .STK-MED ONE Stop: 08/21/17 14:26 Last Admin: 08/21/17 17:27 Dose: 1 gm *Q Meaningful Use (DIS) - VTE *Q VTE Criteria *Q: - Stroke *Q Stroke Criteria *Q: - AMI *Q AMI Criteria *Q:
--- NOTE | 2017-08-28 11:58 | PCM.OPNOTE ---
- General Post-Op/Procedure Note Date of Surgery/Procedure: 08/21/17 Operative Procedure(s): right total knee arthroplasty Pre Op Diagnosis: right knee osteoarthrosis Post-Op Diagnosis: Same Anesthesia Technique: Local, MAC, Spinal Primary Surgeon: Dorian Regan Anesthesia Provider: Sasha Zendejas Road Design Engineer: Marina Rios Road Design Engineer: Desiree Esteban EBL in mLs: 450 Complications: None Condition: Good
--- NOTE | 2017-08-28 12:43 | OR ---
DATE OF OPERATION: 08/21/2017 SURGEON: Dorian Regan MD OPERATION PERFORMED: Right total knee arthroplasty. PREOPERATIVE DIAGNOSIS: Right knee osteoarthrosis. POSTOPERATIVE DIAGNOSIS: Right knee osteoarthrosis. ANESTHESIA: Local MAC with spinal. ANESTHESIA PROVIDER: Sasha Zendejas CRNA. ASSISTANTS: Marina Riso PA-C, and Desiree Esteban LPN. ESTIMATED BLOOD LOSS: 450 mL. COMPLICATIONS: None. CONDITION: Stable. IMPLANTS: 1. [place] size 5 press-fit PS femur. 2. [place] size 4 press-fit tibia. 3. [place] size 4 9-mm PS X3 polyethylene. 4. [place] press-fit asymmetric 29 x 9 mm patella. DESCRIPTION OF PROCEDURE: The patient was identified in the preop holding area. Proper site was marked and identified by the surgeon. The patient was taken back to the operating theater. After adequate anesthesia, the patient's right lower extremity had a nonsterile tourniquet applied and it was then sterilely prepped and draped in the usual sterile fashion. OR timeout was performed. The patient received 2 g IV Ancef. At this time, right lower extremity was exsanguinated. Tourniquet was insufflated to 300 mmHg. Standard medial parapatellar incision was made. Medial parapatellar arthrotomy was created. Deep fibers of the MCL were raised and anterior fat pad was resected. At this time, attention was turned to the patella. Patella measured 23, it was resected to a 14 patella. Drill holes were then drilled and found to be in adequate position. The drill was then drilled in the distal femur and the intramedullary distal femoral cutting guide was then placed. 8 mm was resected off the distal femur and was found to be an adequate resection. Sizing guide was placed. It was found to be a size 5 press - fit PS femur that was shown on the implant record at the beginning of this dictation. The drill holes were drilled for the epicondylar axis using [place] line and epicondyles as reference. At this time, the 4-in-1 cutting block was placed. An anterior posterior and anterior and posterior chamfer cuts were then completed. The correct size box cut was then placed and the box cut was completed and found to be an adequate resection. Attention was turned to the tibia. The posterior medial lateral retractors were placed. The extramedullary tibial guide was placed. It was placed in the old footprint of the ACL. It was aligned with the center of the ankle and 0 degrees of slope, 9 mm was then resected off the unaffected lateral side. There was found to be an acceptable reduction. At this time, posterior osteophytes were removed along with medial and lateral meniscus. A trial implant was placed with a correct sized tibia that was mentioned at the beginning of the dictation. A size 4 9-mm PS X3 polyethylene was then placed. The patient's knee was brought through range of motion. The patella was tracking centrally and was stable to varus and valgus stress. Alignment was found to be roughly at 0 degrees. The tibia was stamped and drilled in proper rotation. The universal tibial base plate was impacted into place. Next, the 5 press-fit PS femur was impacted into place and the size 4 9-mm PS X3 polyethylene was placed. The patient's knee was brought into full extension. Patella was then press-fit into place. Tourniquet was deflated. One liter dilute Betadine solution was irrigated through the knee along with 3 L of pulse lavage irrigation with Ancef. Periarticular injection was then completed. The patient's knee was brought through a range of motion. Once the cement had time to set up and it was found to be stable to varus valgus stress, the patella was tracking centrally with full range of motion. At this time, a #2 barbed suture was used for closure of the medial parapatellar arthrotomy. Topical tranexamic acid was placed. 2-0 Vicryl was used subcutaneously, a running 3-0 Monocryl was used subcuticularly. The patient tolerated the procedure well and was sent to the PACU in stable condition. MMODAL /[id number] JERRI
== END 2017-08-22 16:25 | disposition home or self-care (01) | DRG 470 ==
LOC: JD.OB 11:05 → JD.MS 08-22 16:23 → UNDODISIN 08-22 16:25
PROVIDERS: ADMIT Orthopaedic Surgery; ATTEND Orthopaedic Surgery
PROC: 0SRC0J9 Replacement of Right Knee Joint with Synthetic Substitute, Cemented, Open Approach (ICD-10-PCS; principal; 2017-08-21)
DX: M17.11 Unilateral primary osteoarthritis, right knee (principal); Z79.899 Other long term (current) drug therapy; I10 Essential (primary) hypertension; E78.5 Hyperlipidemia, unspecified; H35.30 Unspecified macular degeneration; E66.9 Obesity, unspecified; Z68.38 Body mass index [BMI] 38.0-38.9, adult; Z85.3 Personal history of malignant neoplasm of breast
CPT/HCPCS: 01402; 36415; 73560-26-RT; 73560-RT; 80053; 85027; 85730; 87641; 97110-GP; 97116-GP; 97162-GP; 97165-GO; 97535-GO; A9270-GY; C1776; J0171; J0690; J0697; J1885; J2250; J2270; J2370; J2405; J2704; J3010; J3370; J3490; J7120

== ENCOUNTER 2020-12-03 07:41 | Day surgery (SDC) | payer MEDICARE, OTHER ==
[~2020-12-03 07:41] MED LIST changes: -Bisacodyl 5 MG Tab PO PRN; -Cyclobenzaprine 10 MG Tab PO PRN; -Ketorolac 15 MG/ML SDV IVPUSH PRN; +Lactated Ringers 1,000 ML IV SCH; +Lidocaine 1% 4 ML ONE; +Lidocaine 1%/Sod Bicarbonate in NS 8.4% 1 ML Syringe IDERM PRN; -Lidocaine 1%/Sod Bicarbonate in NS 8.4% 1 ML Syringe IV PRN; -Magnesium Hydroxide 400 MG/5 ML Susp 30 ML Cup PO PRN; -Morphine 2 MG/ML Syringe IVPUSH PRN; -Naloxone 0.4 MG/ML SDV IVPUSH PRN; -Ondansetron 4 MG/2 ML SDV IVPUSH PRN; +Propofol 200 MG/20 ML SDV ONE; -Sennosides 8.6 MG Tab PO PRN; -diphenhydrAMINE 50 MG/ML SDV IVPUSH PRN
[2020-12-03] MEDS ORDERED: fentaNYL 100 MCG/2 ML SDV ONE (08:13)
--- NOTE | 2020-12-03 08:21 | PCM.PREANE ---
<Sasha Zendejas - Last Filed: 12/03/20 08:16> Preanesthetic Assessment - Procedure Proposed Procedure: Diagnostic EGD - Anesthesia/Transfusion/Family Hx Anesthesia History: Prior Anesthesia Without Reaction Family History of Anesthesia Reaction: No Transfusion History: No Prior Transfusion(s) Intubation History: Unknown - Review of Systems Pulmonary: No Symptoms (CHIP with Cpap/Last took proair inhaler months ago) Cardiovascular: No Symptoms (HTN) Gastrointestinal: Difficulty Swallowing Neurological: No Symptoms (bilaterl mastectomies noted./Vertigo/chronic upper back pain), Headache (History of migraines) Other: Reports: Sinus Problem (allergic rhinitis) - Physical Assessment NPO Status Date: 12/02/20 NPO Status Time: 18:00 Vital Signs: HR: 71 B/P: 133/92 Sat: 96% Resp: 20 Temp: 98.2 Height: 1.73 m Weight: 119 kg ASA Class: 3 Mental Status: Alert & Oriented x3 - Lab Values: All labs reviewed and noted and within acceptable ranges to proceed with scheduled procedure. - Allergies Allergies/Adverse Reactions: Allergies Allergy/AdvReac Type Severity Reaction Status Date / Time No Known Allergies Allergy Verified 08/21/17 13:59 - Anesthesia Plan Pre-Op Medication Ordered: None - Acknowledgements Anesthesia Type Planned: MAC Pt an Appropriate Candidate for the Planned Anesthesia: Yes Alternatives and Risks of Anesthesia Discussed w Pt/Guardian: Yes Pt/Guardian Understands and Agrees with Anesthesia Plan: Yes PreAnesthesia Questionnaire HEENT History: Reports: Macular Degeneration Cardiovascular History: Reports: Hypertension Genitourinary History: Reports: Other (See Below) Other Genitourinary History: enuresis TRAVEL GUIDE History: Reports: Musculoskeletal History: Reports: Arthritis Endocrine/Metabolic History: Reports: Obesity/BMI 30+ Oncologic (Cancer) History: Reports: Breast Other Oncologic History: Patient states bilateral breast cancer. States she had a mastectomy bilaterally on 2015. - Past Surgical History HEENT Surgical History: Reports: Laser Surgery - HOME MEDS Home Medications: Home Meds Ramipril 10 mg PO DAILY 04/29/16 [History] Anastrozole [Arimidex] 1 mg PO DAILY 08/21/17 [History] Cholecalciferol (Vitamin D3) [Vitamin D] 5,000 unit PO DAILY 08/21/17 [History] Hydrochlorothiazide 25 mg PO DAILY 08/21/17 [History] Albuterol Sulfate [Proair Hfa] 1 spray INH ASDIRECTED 04/23/18 [History] B2/Vits A,C,E/Lut/Zeaxanth/Min [Icaps] 1 tab PO DAILY 04/23/18 [History] Multivitamin [Multivitamins] 1 tab PO DAILY 04/23/18 [History] Rivaroxaban [Xarelto] 10 mg PO DAILY tablet 04/24/18 [Rx] oxyCODONE HCl/Acetaminophen [Percocet 5-325 mg Tablet] 1 - 2 tab PO Q6H PRN #60 tablet 04/24/18 [Rx] <Fadia Reyna - Last Filed: 12/03/20 08:32> Preanesthetic Assessment - Anesthesia/Transfusion/Family Hx Anesthesia History: Prior Anesthesia Without Reaction Family History of Anesthesia Reaction: No Transfusion History: No Prior Transfusion(s) Intubation History: Unknown - Review of Systems General: No Symptoms Pulmonary: No Symptoms Cardiovascular: No Symptoms Gastrointestinal: Difficulty Swallowing (Dysphagia) Neurological: No Symptoms, Headache Other: Reports: None (BMI 40), Sinus Problem (allergic rhinitis, chronic congestion) - Physical Assessment ASA Class: 3 Airway Class: Mallampati = 3 Dentition: Reports: Normal Dentition Thyro-Mental Finger Breadths: 2 Mouth Opening Finger Breadths: 3 ROM/Head Extension: Full Lungs: Clear to Auscultation, Normal Respiratory Effort Cardiovascular: Regular Rate, Regular Rhythm - Anesthesia Plan Pre-Op Medication Ordered: None - Acknowledgements Anesthesia Type Planned: MAC Pt an Appropriate Candidate for the Planned Anesthesia: Yes Alternatives and Risks of Anesthesia Discussed w Pt/Guardian: Yes Pt/Guardian Understands and Agrees with Anesthesia Plan: Yes PreAnesthesia Questionnaire - CURRENT (IN HOUSE) MEDS Current Meds: Current Medications Lactated Ringer's (Ringers, Lactated) 1,000 mls @ 125 mls/hr IV ASDIRECTED [facility] Stop: 12/03/20 23:00 Last Admin: 12/03/20 07:50 Dose: 125 mls/hr Documented by: Lidocaine/Sodium Bicarbonate (Lidocaine 1%/Sod Bicarbonate In Ns 8.4% 1 Ml Syringe) 0.25 ml IDERM ONETIME PRN PRN Reason: Prior to IV Start Stop: 12/03/20 18:00 Sodium Chloride (Sodium Chloride 0.9% 10 Ml Syringe) 10 ml FLUSH ASDIRECTED PRN PRN Reason: Keep Vein Open Stop: 12/03/20 18:00 Discontinued Medications Fentanyl (Fentanyl 100 Mcg/2 Ml Sdv) Confirm Administered Dose 100 mcg .ROUTE .STK-MED ONE Stop: 12/03/20 08:14 Lidocaine HCl (Xylocaine-Mpf 1%) Confirm Administered Dose 4 mls @ as directed .ROUTE .STK-MED ONE Stop: 12/03/20 07:20 Propofol (Propofol 200 Mg/20 Ml Sdv) Confirm Administered Dose 200 mg .ROUTE .STK-MED ONE Stop: 12/03/20 07:19
[2020-12-03] MEDS ORDERED: Ketamine 500 mg/10 ML MDV ONE (08:34)
--- NOTE | 2020-12-03 08:58 | PCM.PRNOTE ---
- Free Text/Narrative Note: Date: 12/03/2020 Procedure: diagnostic esophagogastroduodenoscopy Indication: chronic dysphagia Endoscopist: Fortunato Silverman MD Findings: apparent mild inflammatory changes of the stomach and distal esophagus. Detailed Report: The patient was taken to the endoscopy suite and placed in left lateral decub itus position. Timeout was performed and monitored anesthesia care was initiated. A bite-block was placed, and the endoscope was inserted into the mouth and advanced to the second portion of the duodenum with ease. Duodenal mucosa appeared normal. The gastric antrum appeared to have some minor inflammatory changes. A biopsy with cold forceps was obtained. In addition, there were some minuscule polypoid lesions in the proximal stomach and some evidence of mucosal inflammatory change. A biopsy was obtained with cold forceps. On retroflexion of the scope, no hiatal hernia was appreciated. There were no ulcers in the stomach. The scope was withdrawn into the distal esophagus and there appeared to be some inflammatory changes at the gastroesophageal junction. The distal esophageal mucosa appeared perhaps mildly inflamed but was not impressive. Biopsies of the GE junction and the distal esophageal mucosa were obtained with cold forceps. The remainder of the esophagus appeared normal. Air was suctioned from the stomach and the esophagus prior to withdrawal of the scope. The patient tolerated the procedure well.
[2020-12-03 10:11] VITALS: BP 159/90; PULSE 57
== END 2020-12-03 10:16 | disposition home or self-care (01) ==
LOC: JD.SDS 07:41
PROVIDERS: ATTEND Surgery
DX: K22.10 Ulcer of esophagus without bleeding (principal); K31.89 Other diseases of stomach and duodenum; I10 Essential (primary) hypertension; G47.33 Obstructive sleep apnea (adult) (pediatric); E66.9 Obesity, unspecified; Z91.09 Other allergy status, other than to drugs and biological substances; Z68.41 Body mass index [BMI] 40.0-44.9, adult; Z85.3 Personal history of malignant neoplasm of breast; Z79.899 Other long term (current) drug therapy; Z98.890 Other specified postprocedural states
CPT/HCPCS: 43239; 88305; J2704; J3010; J7120; 00731

== ENCOUNTER 2022-05-13 18:02 | Emergency (ER) | payer MEDICARE, OTHER ==
[2022-05-13] MEDS ORDERED: Diltiazem 25 MG/5 ML SDV IVPUSH ONE (18:35)
[2022-05-13] MEDS ORDERED: Sodium Chloride 0.9% 1,000 ML IV ONE (18:38)
[2022-05-13] MEDS ORDERED: Morphine 4 MG/ML Syringe IVPUSH ONE (18:40)
[2022-05-13] MEDS ORDERED: Aspirin 81 MG Tab.Chew PO ONE (18:41)
[2022-05-13 19:16] LABS: ESTIMATED GFR 60 mL/min (>60)
[2022-05-13 19:29] LABS: CORONAVIRUS COVID-19 NAA POSITIVE (NEGATIVE)
[2022-05-13] MEDS ORDERED: Heparin Sodium 5,000 Units/ML Vial IVPUSH ONE (19:59)
[2022-05-13] MEDS ORDERED: Heparin Sodium/D5W 25,000 UNITS/500 ML BAG IV SCH (20:00)
[2022-05-13] MEDS ORDERED: Acetaminophen 325 MG Tab PO ONE (20:28)
[2022-05-13] MEDS ORDERED: Potassium Chloride 20 MEQ Tab.ER PO ONE (20:30)
[2022-05-13] MEDS ORDERED: Lactated Ringers 1,000 ML IV SCH (20:30)
[2022-05-13] MEDS ORDERED: Sodium Chloride 0.9% 10 ML Syringe FLUSH ONE (22:02)
[2022-05-13] MEDS ORDERED: Iopamidol 755 Mg/ML 100 ML Bottle IVPUSH ONE (22:02)
[2022-05-13] MEDS ORDERED: Sodium Chloride 0.9% 100 ML IV SCH (22:15)
[2022-05-13 23:13] VITALS: PULSE 62
[2022-05-13] MEDS ORDERED: Apixaban 5 MG Tab PO ONE (23:37)
[2022-05-13] MEDS ORDERED: Metoprolol Tartrate 25 MG Tab PO ONE (23:37)
[2022-05-14 00:58] VITALS: BP 127/77
== END 2022-05-14 03:15 | disposition home or self-care (01) ==
LOC: JD.ED 18:02
DX: I48.91 Unspecified atrial fibrillation (principal); I10 Essential (primary) hypertension; E66.9 Obesity, unspecified; Z79.01 Long term (current) use of anticoagulants; Z68.36 Body mass index [BMI] 36.0-36.9, adult; Z79.899 Other long term (current) drug therapy; Z20.822 Contact with and (suspected) exposure to COVID-19
CPT/HCPCS: 0241U; 36415; 71045; 71275; 80053; 82553; 83605; 83690; 83735; 84443; 84484; 85007; 85027; 85610; 85730; 93005; 93225; 93226; 96361; 96365; 96366; 96375; 99285; A9270; J1644; J2270; J3490; J7030; J7120; Q9967; 93010; 99284

== ENCOUNTER 2022-08-22 21:32 | Emergency (ER) | payer MEDICARE, OTHER ==
[2022-08-22 23:00] LABS: CORONAVIRUS COVID-19 NAA NEGATIVE (NEGATIVE)
[2022-08-23] MEDS ORDERED: Verapamil 120 MG Cap.ER PO STA (00:49)
[2022-08-23] MEDS ORDERED: Acetaminophen 325 MG Tab PO ONE (00:55)
[2022-08-23 01:33] VITALS: BP 129/80; PULSE 88
[2022-08-23] MEDS ORDERED: Potassium Chloride 20 MEQ Tab.ER PO ONE (02:31)
== END 2022-08-23 03:02 | disposition home or self-care (01) ==
LOC: JD.ED 21:32
DX: I47.1 Supraventricular tachycardia (principal); J10.1 Influenza due to other identified influenza virus with other respiratory manifestations; I10 Essential (primary) hypertension; E66.9 Obesity, unspecified; Z68.36 Body mass index [BMI] 36.0-36.9, adult; Z79.899 Other long term (current) drug therapy; Z79.01 Long term (current) use of anticoagulants; Z86.16 Personal history of COVID-19; Z20.822 Contact with and (suspected) exposure to COVID-19
CPT/HCPCS: 0241U; 36415; 80048; 83735; 93005; 96365; 99285; A9270; J3475

== ENCOUNTER 2024-02-08 07:38 | Day surgery (SDC) | payer MEDICARE, OTHER ==
[~2024-02-08 07:38] MED LIST changes: -Lidocaine 1% 4 ML ONE; +Sodium Chloride 0.9% 10 ML Syringe FLUSH SCH
[2024-02-08] MEDS: Lactated Ringers 1,000 ML IV SCH (07:45)
[2024-02-08] MEDS ORDERED: Ondansetron 4 MG/2 ML SDV ONE (08:15)
[2024-02-08 10:20] VITALS: BP 126/63; PULSE 70
== END 2024-02-08 09:45 | disposition home or self-care (01) ==
LOC: JD.SDS 07:38
PROVIDERS: ATTEND Surgery
DX: Z12.11 Encounter for screening for malignant neoplasm of colon (principal); K64.8 Other hemorrhoids; I12.9 Hypertensive chronic kidney disease with stage 1 through stage 4 chronic kidney disease, or unspecified chronic kidney disease; E11.22 Type 2 diabetes mellitus with diabetic chronic kidney disease; N18.2 Chronic kidney disease, stage 2 (mild); I47.10 Supraventricular tachycardia, unspecified; J45.909 Unspecified asthma, uncomplicated; E66.01 Morbid (severe) obesity due to excess calories; Z79.82 Long term (current) use of aspirin; Z79.899 Other long term (current) drug therapy
CPT/HCPCS: G0121; J2704; J7120; J2405